=== PATIENT | male | born 1935 | race Caucasian/White ===

== ENCOUNTER → 2019-02-17 | Outpatient (REF) | payer MEDICARE, OTHER ==
[~2019-02-17] MED LIST: AMLO10TA5 PO; AMOX500C PO; ATEN50TA2 PO; CALC1TAB60 PO; CEPH500T PO; COLA100C5 PO; COUM1TAB17 PO; COUM7.5T PO; DIGO0.25 PO; DRIS50003 PO; FERG27TA PO; FERR1ELX PO; GLIP-162 PO; GLUC500T PO; GLUC5TAB3 PO; LYRI75CA PO; MILK120011 PO; MIRA3350 PO; PERC5TAB12 PO; PROT1TAB2 PO; SENO8.6T5 PO; TRIA37.5 PO; TRIA37.53 PO; TYLE325T5 PO; ULTR50TA8 PO; VESI10TA2 PO; VITA500T PO; [UNRECOGNIZED DRUG - CODE] SC; [UNRECOGNIZED DRUG - OTHER]; coumadin OR; prolia; vitamin D OR
== END ==
LOC: M SFHCPLAZ 16:18
PROVIDERS: ATTEND Family Medicine
DX: E66.9 Obesity, unspecified (principal); E11.69 Type 2 diabetes mellitus with other specified complication; Z79.01 Long term (current) use of anticoagulants; Z53.8 Procedure and treatment not carried out for other reasons

== ENCOUNTER → 2019-05-07 | Outpatient (REF) | payer MEDICARE, OTHER | LOC: M SFHCPLAZ 13:51 | DX: E11.69 Type 2 diabetes mellitus with other specified complication (principal); Z53.8 Procedure and treatment not carried out for other reasons ==

== ENCOUNTER → 2019-06-29 | Outpatient (CLI) | payer MEDICARE, OTHER ==
--- NOTE | 2019-06-29 16:46 | REP ---
Two-view chest: 06/29/2019. Indication: Cough. Hemoptysis. Comparison: 12/28/2015. Findings: There is no air space consolidation, pleural effusion or pneumothorax. Cardiac silhouette is enlarged. Aortic atherosclerotic disease is noted. The previously described likely granuloma is unchanged. DISH of the thoracic spine is noted. Impression: No acute cardiopulmonary process. Electronically Signed by Brandon Serrano DO 06/29/2019 04:37 P
== END ==
LOC: M WUC 16:23
PROVIDERS: ATTEND Student in an Organized Health Care Education/Training Program
DX: R04.2 Hemoptysis (principal)
CPT/HCPCS: 71046; 85610; G0463

== ENCOUNTER → 2019-10-14 | Outpatient (REF) | payer MEDICARE, OTHER | LOC: M SFHCPLAZ 10:52 | PROVIDERS: ATTEND Family Medicine | DX: E11.69 Type 2 diabetes mellitus with other specified complication (principal) ==

== ENCOUNTER → 2020-11-21 | Outpatient (REF) | payer MEDICARE, OTHER ==
[~2020-11-21] MED LIST changes: -AMLO10TA5 PO; +AMLO1TAB25 PO; -COUM7.5T PO; +COUM7.5T6 PO; +VITA-243 PO; -VITA500T PO
== END ==
LOC: M SFHCPLAZ 15:16
PROVIDERS: ATTEND Family Medicine
DX: Z79.01 Long term (current) use of anticoagulants (principal)

== ENCOUNTER → 2020-12-26 | Outpatient (CLI) | payer MEDICARE, BC, OTHER ==
--- NOTE | 2020-12-26 10:48 | REP ---
INDICATION: CHRONIC KIDNEY DISEASE, STAGE 3B COMPARISON: None TECHNIQUE: Real time grace scale ultrasound examination using curved array transducer. FINDINGS: Right kidney measures 12.2 x 6.2 x 6.1 cm and includes 12 mm lower pole cortical cyst and demonstrates increased central sinus fat and cortical thinning consistent with chronic age-related renal disease. No hydronephrosis, nephrolithiasis, or renal mass lesion. Left kidney measures 15.2 x 6.1 x 5.9 cm and demonstrates increased central sinus fat and cortical thinning consistent with chronic age-related renal disease. No hydronephrosis, nephrolithiasis, cystic or renal mass lesion. Prostate gland measures 3.5 x 4.2 x 4.2 cm (32 cc). Bladder is grossly unremarkable. IMPRESSION: 1. Chronic medical renal disease. No hydronephrosis. <Electronically signed by Peyman Porter > 12/26/20 [id number]
== END ==
LOC: M RAD 10:00
PROVIDERS: ATTEND Student in an Organized Health Care Education/Training Program
DX: N18.32 Chronic kidney disease, stage 3b (principal)